=== PATIENT | female | born 1985 | race Caucasian/White ===

== ENCOUNTER 2020-08-28 22:58 | Inpatient (IN) | payer OTHER, MEDICAID ==
[~2020-08-28] VITALS: Ht 160 cm; Wt 105.8 kg
[2020-08-28 23:05] VITALS: BP 138/84
[2020-08-28] MEDS ORDERED: CHILDREN'S15 MG/1 M2 PO (23:08)
[2020-08-28] MEDS ORDERED: LEVO-T25 MCG PO (23:08)
[2020-08-28] MEDS ORDERED: B12 ACTIVE1000 MCG PO (23:08)
[2020-08-28 23:27] LABS: ABSOLUTE LYMPHOCYTES 0.9 thou/uL (0.8-5.3); ABSOLUTE MONOCYTES 0.4 thou/uL (0.0-1.2); ABSOLUTE NEUTROPHILS 3.3 thou/uL (1.6-8.1); BASOPHILS 0.5 %; EOSINOPHILS 0.1 %; HEMOGLOBIN 14.3 gm/dL (12.0-15.0); LYMPHOCYTES 18.8 %; MCH 32.2 pg (26.0-34.0); MCHC 34.9 g/dL (28.0-37.0); MCV 92.1 fL (80.0-100.0); MONOCYTES 8.1 %; MPV 8.6 fl. (7.2-11.1); NUCLEATED RBCS 0 /100WBC; PLATELET COUNT* 198 thou/uL (150-400); POLYS 72.5 %; RBC 4.45 mil/uL (4.20-5.00); RDW-CV 13.8 % (10.5-14.5); WBC 4.6 thou/uL (4.0-11.0)
[2020-08-28 23:36] LABS: CALCIUM 8.3 mg/dL (8.5-10.1); CREATININE 1.1 mg/dL (0.6-1.3); POTASSIUM 3.5 mmol/L (3.5-5.1)
[2020-08-28 23:46] LABS: ALBUMIN 3.3 g/dL (3.4-5.0); TOTAL BILIRUBIN 0.7 mg/dL (<0.1-1.0); TOTAL PROTEIN 8.1 g/dL (6.4-8.2)
[2020-08-29 00:34] LABS: URINE BILIRUBIN NEGATIVE (Negative); URINE BLOOD 3+ (Negative); URINE CLARITY CLOUDY; URINE COLOR RED; URINE GLUCOSE-RANDOM NEGATIVE (Negative); URINE PROTEIN 3+ (Negative)
[2020-08-29 00:37] LABS: URINE KETONES 3+ (Negative); URINE NITRITE-REFLEX POSITIVE (Negative)
[2020-08-29 00:38] LABS: URINE LEUKOCYTES-REFLEX 1+ (Negative)
[2020-08-29 00:40] LABS: ACETEST (KETONE CONFIRMATORY) Small (Negative)
[2020-08-29 00:56] LABS: CASTS None Seen /LPF (None Seen); SQUAMOUS 4-10 Moderate /LPF (0-3)
[2020-08-29 01:01] LABS: URINE RBC >20 Many /HPF (0-2)
[2020-08-29 01:02] LABS: CRYSTALS None Seen /LPF (None Seen)
[2020-08-29 03:35] VITALS: BP 112/73
[2020-08-29 06:08] VITALS: BP 126/69
--- NOTE | 2020-08-29 09:50 | EKG ---
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
[2020-08-29 10:08] VITALS: BP 102/82
[2020-08-29 12:00] VITALS: BP 104/76
[2020-08-29 18:00] VITALS: BP 128/63
[2020-08-29 20:30] VITALS: BP 121/76
[2020-08-30] VITALS (7 sets, daily range): BP systolic 103–139; BP diastolic 50–75
[2020-08-30 04:56] LABS: HEMATOCRIT 35.5 % (37.0-47.0); MCH 31.7 pg (26.0-34.0); MCHC 34.7 g/dL (28.0-37.0); MCV 91.3 fL (80.0-100.0); MPV 8.7 fl. (7.2-11.1); RBC 3.89 mil/uL (4.20-5.00); RDW-CV 13.9 % (10.5-14.5); WBC 6.2 thou/uL (4.0-11.0)
[2020-08-30 05:04] LABS: CREATININE 0.9 mg/dL (0.6-1.3); HEMOGLOBIN 12.3 gm/dL (12.0-15.0); POTASSIUM 3.5 mmol/L (3.5-5.1)
[2020-08-31 04:00] VITALS: BP 107/60
[2020-08-31 08:00] VITALS: BP 124/78
[2020-08-31 09:29] LABS: CALCIUM 8.5 mg/dL (8.5-10.1); CREATININE 0.9 mg/dL (0.6-1.3); POTASSIUM 3.5 mmol/L (3.5-5.1)
[2020-08-31 12:00] VITALS: BP 106/55
[2020-08-31 16:00] VITALS: BP 111/63
[2020-08-31 20:00] VITALS: BP 99/54
[2020-09-01] VITALS: BP 116/60
[2020-09-01 03:40] VITALS: BP 118/62
[2020-09-01 10:28] LABS: ABSOLUTE LYMPHOCYTES 0.7 thou/uL (0.8-5.3); BASOPHILS 0.1 %; HEMOGLOBIN 13.2 gm/dL (12.0-15.0); MPV 8.2 fl. (7.2-11.1); NUCLEATED RBCS 0 /100WBC
[2020-09-01 10:34] LABS: ABSOLUTE MONOCYTES 0.6 thou/uL (0.0-1.2); ABSOLUTE NEUTROPHILS 6.7 thou/uL (1.6-8.1); HEMATOCRIT 38.9 % (37.0-47.0); MCH 31.6 pg (26.0-34.0); MCHC 34.1 g/dL (28.0-37.0); MCV 92.7 fL (80.0-100.0); MONOCYTES 7.3 %; POLYS 83.6 %; RBC 4.19 mil/uL (4.20-5.00); RDW-CV 13.7 % (10.5-14.5)
[2020-09-01 10:35] LABS: PLATELET COUNT* 333 thou/uL (150-400)
[2020-09-01 10:37] LABS: APTT 24.5 Seconds (25.0-31.3); PROTIME 11.1 Seconds (9.20-11.50)
[2020-09-01 10:38] LABS: CALCIUM 8.6 mg/dL (8.5-10.1); CREATININE 0.9 mg/dL (0.6-1.3); POTASSIUM 3.5 mmol/L (3.5-5.1); TOTAL BILIRUBIN 0.5 mg/dL (<0.1-1.0); TOTAL PROTEIN 7.4 g/dL (6.4-8.2)
[2020-09-01 12:00] VITALS: BP 119/64
[2020-09-01 16:00] VITALS: BP 124/66
[2020-09-01 20:00] VITALS: BP 118/71
[2020-09-02 00:53] VITALS: BP 131/82
[2020-09-02 03:55] VITALS: BP 138/78
[2020-09-02 13:08] VITALS: BP 130/72
[2020-09-02 20:00] VITALS: BP 125/69
[2020-09-03 00:22] VITALS: BP 110/56
[2020-09-03 04:00] VITALS: BP 115/62
[2020-09-03 04:40] LABS: HEMATOCRIT 39.7 % (37.0-47.0); HEMOGLOBIN 13.6 gm/dL (12.0-15.0); MCH 31.6 pg (26.0-34.0); MCHC 34.2 g/dL (28.0-37.0); MCV 92.4 fL (80.0-100.0); MPV 8.3 fl. (7.2-11.1); RBC 4.3 mil/uL (4.20-5.00); RDW-CV 13.7 % (10.5-14.5); WBC 8.9 thou/uL (4.0-11.0)
[2020-09-03 04:50] LABS: CALCIUM 8.2 mg/dL (8.5-10.1); CREATININE 0.9 mg/dL (0.6-1.3); POTASSIUM 3.9 mmol/L (3.5-5.1)
[2020-09-03 08:00] VITALS: BP 119/59
[2020-09-03 11:54] VITALS: BP 142/81
[2020-09-03 15:56] VITALS: BP 117/60
[2020-09-03 20:00] VITALS: BP 119/63
[2020-09-04] VITALS (7 sets, daily range): BP systolic 105–129; BP diastolic 54–75
[2020-09-05 03:22] VITALS: BP 120/70; BP 126/70
[2020-09-05 05:27] LABS: HEMATOCRIT 38.7 % (37.0-47.0); HEMOGLOBIN 13.2 gm/dL (12.0-15.0); MCHC 34.2 g/dL (28.0-37.0); MCV 90.6 fL (80.0-100.0); NUCLEATED RBCS 0 /100WBC; PLATELET COUNT* 395 thou/uL (150-400); RBC 4.27 mil/uL (4.20-5.00); RDW-CV 13.6 % (10.5-14.5); WBC 11.3 thou/uL (4.0-11.0)
[2020-09-05 05:53] LABS: CALCIUM 8.7 mg/dL (8.5-10.1); CREATININE 0.8 mg/dL (0.6-1.3); MAGNESIUM 2.3 mg/dL (1.8-2.4); POTASSIUM 3.9 mmol/L (3.5-5.1)
[2020-09-05 08:00] VITALS: BP 110/67
[2020-09-05 09:01] LABS: ABSOLUTE LYMPHOCYTES 0.7 thou/uL (0.8-5.3); ABSOLUTE MONOCYTES 0.7 thou/uL (0.0-1.2); ABSOLUTE NEUTROPHILS 9.9 thou/uL (1.6-8.1); ATYPICAL LYMPHS 1 %; METAMYELOCYTES 10 %
[2020-09-05 09:02] LABS: PLATELET ESTIMATE ADEQUATE
[2020-09-05 11:51] VITALS: BP 161/60
[2020-09-05] MEDS ORDERED: LEVOFLOXACIN500 MG PO (14:23)
[2020-09-05] MEDS ORDERED: PREDNISONE 10 M10 MG PO (14:23)
[2020-09-05 15:16] VITALS: BP 161/60
--- NOTE | 2020-09-06 21:48 | CON ---
[address] [address] CONSULTATION Name: BAILEYGORDOFRANKIKRYSTINA Frandy Room: [address]#: [id number] Admission: 08/29/20 Attend Phys: Sylvia Revees Discharge: 09/05/20 Date of : 89 Report #: [id number] THIS REPORT FOR: cc: CEDRIC - No family physician/PCP FAM - No family physician/PCP Tony Lockhart MD ~ DATE OF CONSULTATION: 09/04/2020 Consult has been requested by Dr. Diaz. INDICATION FOR CONSULTATION: COVID-19. HISTORY OF PRESENT ILLNESS: A 35-year-old female has a history of morbid obesity, body mass index is 41.3. She states that she is a lifetime nonsmoker, does have a history of hypothyroidism and anemia. The patient is now admitted initially on 08/29/2020, presentation is with increasing shortness of breath. She has been coughing, she says that she has brought up some yellow and brown sputum, does not have chest pain, only had a low-grade fever at 37.7 degrees Celsius. She did have nausea and vomiting on initial presentation. She also was hypoxic with an O2 saturation of 87% on room air on initial presentation. The patient's oxygen needs gradually went up to the point that she was on 15 liters of nasal cannula on . She remained on 15 liters of nasal cannula till yesterday. Since last night, there has been some improvement in oxygen needs with now down to 4 liters of nasal cannula, she is saturating 93%. There is only mild swelling of lower extremities. REVIEW OF SYSTEMS: She answered to the negative for 12 questions for review of systems, except as mentioned above. PAST MEDICAL HISTORY: Anemia; morbid obesity, body mass index 41; hypothyroidism; ; cataract surgery. SOCIAL HISTORY: Lifetime nonsmoker. No known history of heavy alcohol use or illegal drug use. CURRENT MEDICATIONS: List in modu reviewed. HOME MEDICATIONS: List in modu reviewed. ALLERGIES: SULFONAMIDE ANTIBIOTICS. FAMILY HISTORY: No pertinent family history. PHYSICAL EXAMINATION: GENERAL: She is alert, awake and oriented, [place] [address] CONSULTATION Name: BAILEYGORDOFRANKICHERELLEKRYSTINA Frandy Room: [address]#: [id number] Admission: 08/29/20 Attend Phys: Sylvia Reeves Discharge: 09/05/20 Date of : 89 Report #: [id number] distress at this time. VITAL SIGNS: She has a pulse of 65 and a blood pressure of 129/75; saturating 93%, she is on 4 liters of nasal cannula; respiratory rate is 18; she is afebrile with a temperature of 36.6. Body mass index, again, 41.3. HEENT: Head is normocephalic and atraumatic. NECK: Does not show raised JVP, asymmetry, mass or lymph nodes. CHEST: Symmetrical expansion on inspection and palpation. On auscultation, chest is clear. HEART: Regular. There is no murmur. ABDOMEN: Soft and nontender. LOWER EXTREMITIES: Show trace edema. No calf tenderness. SKIN: Dry and intact. LABORATORY DATA: The patient's chest x-ray does show bilateral infiltrates, which are interstitial, consistent with COVID-19; she may have mild increase in pulmonary vascular congestion as well. The patient's lab work is in modu and this is reviewed. D-dimer is not elevated. She has in fact also had a CT of chest, which was performed on 08/29/2020 that does show bilateral scattered infiltrates. The urinalysis was positive for E. coli greater than 100,000, shows nitrite positive with moderate wbc's in urine. ASSESSMENT AND PLAN: 1. Acute hypoxemic respiratory failure secondary to COVID-19. We will continue with current therapy. Avoid lying supine. Recommend prone positioning; if possible, out of bed to chair. Continue to titrate oxygen. May need oxygen upon discharge. 2. COVID-19. We will continue with dexamethasone, but I cut down the dose to 6 mg b.i.d. If she continues to improve, then I will plan to switch this to 6 mg once a day tomorrow. She finished remdesivir. She was ordered 1 unit of convalescent plasma. It is not clear to me as to whether she did receive it or not. 3. Pulmonary infiltrates. Chest x-ray primarily appears to show viral pneumonia; however, there are some lobar infiltrates on the CT as well. Therefore, I agree with broad-spectrum antibiotics. Considering that she is doing better, I scheduled ceftriaxone to be discontinued after tomorrow morning's dose. She did have some yellow and brown sputum production. If this persists, then I will follow this with cefdinir for 3 more days. 4. Mild fluid overload. We will give one dose of Lasix. 5. Deep venous thrombosis prophylaxis, on Lovenox. 6. Clostridium difficile prophylaxis, [place] [address] CONSULTATION Name: KRYSTINA DEWEY Room: [address] [facility] IN ..#: [id number] Admission: 08/29/20 Attend Phys: Sylvia Reeves Discharge: 09/05/20 Date of : 89 Report #: [id number] Thanks for this consultation. <ELECTRONICALLY SIGNED> By: Tony Lockhart MD 09/06/20 2148 1429 2055Aelva Lockhart MD /nt
== END 2020-09-05 16:05 | disposition home or self-care (01) | DRG 177 ==
LOC: M.ERS 22:58 → M.TBA-ER 08-29 02:44 → M.2W 08-29 02:44 → M.ORTHSURG 09-02 17:45
PROVIDERS: Emergency Medicine; Family Medicine; Internal Medicine; Internal Medicine Critical Care Medicine; ADMIT Internal Medicine; ATTEND Internal Medicine
PROC: XW033E5 Introduction of Remdesivir Anti-infective into Peripheral Vein, Percutaneous Approach, New Technology Group 5 (ICD-10-PCS; principal; 2020-08-29)
PROC: 05HD33Z Insertion of Infusion Device into Right Cephalic Vein, Percutaneous Approach (ICD-10-PCS; principal; 2020-08-29)
PROC: 5A0935A Assistance with Respiratory Ventilation, Less than 24 Consecutive Hours, High Flow/Velocity Cannula (ICD-10-PCS; 2020-08-31)
PROC: 5A0945A Assistance with Respiratory Ventilation, 24-96 Consecutive Hours, High Flow/Velocity Cannula (ICD-10-PCS; 2020-09-01)
PROC: 5A0935A Assistance with Respiratory Ventilation, Less than 24 Consecutive Hours, High Flow/Velocity Cannula (ICD-10-PCS; 2020-09-04)
PROC: 5A0935A Assistance with Respiratory Ventilation, Less than 24 Consecutive Hours, High Flow/Velocity Cannula (ICD-10-PCS; 2020-09-05)
DX: U07.1 COVID-19 (principal); J12.82 Pneumonia due to coronavirus disease 2019; J96.01 Acute respiratory failure with hypoxia; N39.0 Urinary tract infection, site not specified; E03.9 Hypothyroidism, unspecified; R74.01 Elevation of levels of liver transaminase levels; E66.9 Obesity, unspecified; B96.89 Other specified bacterial agents as the cause of diseases classified elsewhere; T38.0X5A Adverse effect of glucocorticoids and synthetic analogues, initial encounter; Z68.41 Body mass index [BMI] 40.0-44.9, adult; Z98.42 Cataract extraction status, left eye; Z88.2 Allergy status to sulfonamides; Y92.89 Other specified places as the place of occurrence of the external cause